=== PATIENT | female | born 1950 | race Caucasian/White ===

== ENCOUNTER 2018-04-18 05:55 | Day surgery (SDC) | payer OTHER ==
[~2018-04-18 05:55] MED LIST: AMARYL PO; ASPIR 8181 MG PO; ATORVASTATIN CA10 MG PO; CALCIUM500 M1 PO; COZAAR25 MG PO; GABAPENTIN300 MG PO; LEVO-T50 MCG PO; M.V.I. ADULT10 ML; METFORMIN HCL500 MG PO; OMEPRAZOLE20 MG PO
== END 2018-04-18 17:35 | disposition home or self-care (01) ==
LOC: CIR.AMB 05:55 → ADM 08:00 → CIR.AMB 17:35
DX: D05.12 Intraductal carcinoma in situ of left breast (principal)

== ENCOUNTER 2018-05-22 23:30 | Day surgery (SDC) | payer OTHER ==
[~2018-05-22] VITALS: Ht 157.5 cm; Wt 80.3 kg
[2018-05-23] MEDS ORDERED: CLEOCIN HCL300 MG (00:24)
== END 2018-05-23 22:40 | disposition home or self-care (01) ==
LOC: CIR.AMB 23:30 → ER 23:30 → CIR.AMB 23:32 → ER 23:32 → CIR.AMB 05-23 02:00 → SEC-K 05-23 14:10 → ER 05-23 14:10 → CIR.AMB 05-23 14:10 → EDSTATUS 05-23 18:15 → CIR.AMB 05-23 18:44 → SEC-K 05-23 19:32 → O/R 05-23 19:32 → CIR.AMB 05-23 21:40 → SEC-K 05-23 22:40 → O/R 05-23 22:40 → CIR.AMB 05-23 22:40
DX: N61.1 Abscess of the breast and nipple (principal); L02.412 Cutaneous abscess of left axilla

== ENCOUNTER 2019-02-25 07:00 | Day surgery (SDC) | payer OTHER ==
[~2019-02-25 07:00] MED LIST changes: +CLEOCIN HCL300 MG
== END 2019-02-25 16:25 | disposition home or self-care (01) ==
LOC: CIR.AMB 07:00
DX: N81.6 Rectocele (principal)

== ENCOUNTER 2019-02-27 12:26 | Emergency (ER) | payer OTHER ==
[~2019-02-27] VITALS: Ht 157.5 cm; Wt 80.7 kg
== END 2019-02-27 16:54 | disposition home or self-care (01) ==
LOC: ER 12:26
DX: R30.0 Dysuria (principal); Z98.890 Other specified postprocedural states